=== PATIENT | female | born 1995 | race Hispanic/Latino ===

== ENCOUNTER 2018-12-09 08:09 | Outpatient (CLI) | payer OTHER ==
--- NOTE | 2018-12-09 09:52 | ULT ---
GALLBLADDER ULTRASOUND: HISTORY: Right upper quadrant pain. FINDINGS: Real-time imaging of the right upper quadrant was performed. It shows normal-appearing gallbladder. The common duct is 4 mm. The liver measures 13 cm in length and shows no focal abnormalities. Right kidney is normal in size and nonobstructed. The pancreas region is unremarkable. IMPRESSION: Unremarkable gallbladder ultrasound. POS: [id number]
== END 2018-12-09 08:10 | disposition home or self-care (01) ==
LOC: BICULT 08:09
PROVIDERS: ATTEND Family Medicine
DX: R10.11 Right upper quadrant pain (principal); R11.2 Nausea with vomiting, unspecified
CPT/HCPCS: 76705